=== PATIENT | male | born 1965 | race African-American/Black ===

== ENCOUNTER → 2018-04-17 | Outpatient (CLI) | payer OTHER ==
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
== END ==
LOC: RADUSWWP 09:06
PROVIDERS: ATTEND Family Medicine
DX: R60.0 Localized edema (principal)

== ENCOUNTER → 2018-04-22 | Outpatient (CLI) | payer OTHER ==
--- NOTE | 2018-04-22 21:57 | CT ---
EXAMINATION TYPE: CT hip LT wo con DATE OF EXAM: 04/22/2018 COMPARISON: Abdominal x-ray July 20, 2013 HISTORY: c/o left hip pain X many years CT DLP: 655.3 mGycm Automated exposure control for dose reduction was used. FINDINGS: There is lateral fixating plate with multiple transverse screws and proximal femoral neck fixating sc rew through healed subtrochanteric fracture of left proximal femur. There is advanced joint space los s with subchondral cystic change in the acetabulum and femoral head. There is chronic deformity of th e femoral head with loss of normal spherical shape. Moderate to severe spurring is present. Findings appears fairly similar to abdominal x-ray from 2013. Localizer image shows more moderate joint space loss in the opposite right hip with mild acetabular s purring. Muscle bulk and visualized left thigh is felt within normal limits. No significant joint effusion is seen. No suspicious groin adenopathy. No suspicious groin hernia. Visualized pelvic structures are un remarkable. IMPRESSION: SUCCESSFUL HEALING OF SUBTROCHANTERIC FRACTURE AFTER FIXATION. ADVANCED DEGENERATIVE CHANGES LEFT HIP REDEMONSTRATED. NO SIGNIFICANT PROGRESSION FROM 2014 X-RAY.
== END ==
LOC: RADCTMAIN 16:02
PROVIDERS: ATTEND Family Medicine
DX: S72.22XD Displaced subtrochanteric fracture of left femur, subsequent encounter for closed fracture with routine healing (principal); M16.12 Unilateral primary osteoarthritis, left hip

== ENCOUNTER → 2018-05-26 | Outpatient (CLI) | payer OTHER ==
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
--- NOTE | 2018-05-26 12:13 | XR ---
EXAMINATION TYPE: XR lumbar spine 2 or 3V DATE OF EXAM: 05/26/2018 CLINICAL HISTORY: Back pain TECHNIQUE: Frontal and lateral images of the lumbar spine are obtained. COMPARISON: None FINDINGS: There are 5 lumbar type vertebral bodies identified. The lumbar spine shows satisfactory alignment without evidence of acute fracture or dislocation. Vertebral body heights and disk space he ights are within normal limits. There are very mild degenerative changes of L3-L4 with small anterior osteophytes and facet arthropathy at L4-5 and L5-S1.. The overlying soft tissue appears unremarkabl e. Partial visualization of a femoral fixation prema is seen. IMPRESSION: No acute fracture or dislocation is seen in the lumbar spine. Mild multilevel degenerati ve changes of the lumbar spine.
== END ==
LOC: RADXRMAIN 09:48
PROVIDERS: ATTEND Family Medicine
DX: M12.811 Other specific arthropathies, not elsewhere classified, right shoulder (principal)
CPT/HCPCS: 72100

== ENCOUNTER → 2018-09-10 | Outpatient (CLI) | payer OTHER ==
--- NOTE | 2018-09-10 16:00 | MR ---
EXAMINATION TYPE: MR lumbar spine wo con DATE OF EXAM: 09/10/2018 COMPARISON: Lumbar spine x-ray May 26, 2018 HISTORY: low back pain per order. Pain in back and both hips since March 2018 per patient. TECHNIQUE: Multiplanar, multisequence imaging of the lumbar spine is performed without IV contrast. FINDINGS: Sagittal images of the lumbar spine show vertebral body heights and alignment to appear sat isfactory. There is disc desiccation L2-L3 and L3-L4 levels. There is mild disc space narrowing L3-L4 level. Posterior disc herniations are seen at these levels on sagittal images. The conus medullaris is somewhat low in position ending at L2 level without suspicious signal or clumping of lumbosacral n erve roots. There is mild to moderate anterior spurring with heterogeneous endplate changes L3-L4 lev el predominantly Modic type II. Axial images show the T12-L1 and L1-L2 levels to appear within normal limits. Axial images at L2-L3 level show broad disc bulge with central disc protrusion component effacing ant erior thecal sac on axial image 19, bilateral neural foramina remain patent. Axial images at the L3-L4 level show moderate broad disc bulge effacing anterior thecal sac and causi ng moderate left-sided anterior inferior neural foraminal narrowing encroachment along inferior tatiana n of left L3 nerve sagittal image 3 and axial image 13, there is mild to moderate right-sided anterio r inferior neural foraminal narrowing encroachment along inferior margin right L3 nerve sagittal imag e 12 less prominent on axial images. Axial images at L4-L5 level show mild facet degenerative changes bilaterally with mild broad disc bul ge minimally effacing anterior thecal sac and causing mild to moderate bilateral anterior inferior ne ural foraminal narrowing, encroachment lung anterior inferior margin of both L4 nerve is difficult to exclude on sagittal image 3 and 12 respectively and axial image 9. Axial images at L5-S1 level show mild facet degenerative changes bilaterally. There is central disc p rotrusion minimally effacing anterior thecal sac, bilateral neural foramina are patent. No suspicious incidental retroperitoneal findings are seen. IMPRESSION: Multilevel degenerative changes in the mid to lower lumbar spine most prominent L2-L3 thr ough L4-L5 levels as detailed above.
== END | disposition home or self-care (01) ==
LOC: RADMRIMAIN 14:52
PROVIDERS: ATTEND Family Medicine
DX: M99.73 Connective tissue and disc stenosis of intervertebral foramina of lumbar region (principal); M48.061 Spinal stenosis, lumbar region without neurogenic claudication; M51.26 Other intervertebral disc displacement, lumbar region; M47.816 Spondylosis without myelopathy or radiculopathy, lumbar region
CPT/HCPCS: 72148